=== PATIENT | male | born 1975 | race Caucasian/White ===

== ENCOUNTER 2018-05-26 19:30 | Emergency (ER) | payer SELFPAY ==
[~2018-05-26] VITALS: Ht 167.6 cm; Wt 81.6 kg
[~2018-05-26 19:30] MED LIST: BENADRYL PRN
[2018-05-26 19:59] VITALS: BP 168/93
--- NOTE | 2018-05-26 20:08 | NUR ---
PT PRESENTS TO ED WITH PRESSURE CHEST PAIN X3 HRS. NON-RADIATING PAIN. VSS. A&OX4. C/O NAUSEA. NO SOB/DYSPNEA. POSITIONED IN BED FOR COMFORT. PT STATES PAIN WORSE WITH EXERTION INTERMITTENTLY OVER PAST 3 WKS. ER MD AWARE. CONTINUE TO MONITOR.
--- NOTE | 2018-05-26 20:08 | NUR ---
AMBULATED TO ER BED 2
[2018-05-26] MEDS ORDERED: LORazepam 2 MG/ML VIAL IM ONE (20:35)
[2018-05-26 22:07] VITALS: BP 168/93
--- NOTE | 2018-05-26 22:07 | NUR ---
Patient discharged with v/s stable. Written and verbal after care instructions given and explained. Patient alert, oriented and verbalized understanding of instructions. Ambulatory with steady gait. All questions addressed prior to discharge. ID band removed. Patient advised to follow up with PMD. Rx of Xanax given. Patient educated on indication of medication including possible reaction and side effects. Opportunity to ask questions provided and answered. Instructed pt to stay in lobby for 15 min to allow medication re-evaluation.
--- NOTE | 2018-05-26 22:22 | NUR ---
Medication response. NADR. 0/10 pain. Pt was driven home by family member.
== END 2018-05-26 22:07 | disposition home or self-care (01) ==
LOC: MED 19:30
DX: F41.9 Anxiety disorder, unspecified (principal); Z79.899 Other long term (current) drug therapy
CPT/HCPCS: 70450; 96372; 99284; J2060

== ENCOUNTER 2020-02-04 15:39 | Emergency (ER) | payer MEDICAID ==
[~2020-02-04] VITALS: Ht 152.4 cm; Wt 84.8 kg
[2020-02-04 15:57] VITALS: BP 159/92
--- NOTE | 2020-02-04 16:02 | NUR ---
C/O ABDOMINAL BLOATING/FULLNESS & L SIDE CHEST PAIN THAT COMES AND GOES X1 MONTH. PT REPORTS OCCASIONAL N/V. ABDOMEN SOFT/FLAT NON TENDER, BOWEL SOUNDS PRESENT X4. HR EVEN & REGULAR. DENIES SOB.
[2020-02-04 17:54] VITALS: BP 159/92
--- NOTE | 2020-02-04 17:55 | NUR ---
Patient discharged with v/s stable. Written and verbal after care instructions given and explained. Patient alert, oriented and verbalized understanding of instructions. Ambulatory with steady gait. All questions addressed prior to discharge. ID band removed. Patient advised to follow up with PMD. Rx of OMEPRAZOLE given. Patient educated on indication of medication including possible reaction and side effects. Opportunity to ask questions provided and answered.
== END 2020-02-04 17:55 | disposition home or self-care (01) ==
LOC: MED 15:39
DX: R07.9 Chest pain, unspecified (principal); K21.9 Gastro-esophageal reflux disease without esophagitis; Z79.899 Other long term (current) drug therapy
CPT/HCPCS: 93005; 99283